=== PATIENT | female | born 1990 | race Caucasian/White ===

== ENCOUNTER 2021-06-24 11:00 | Outpatient (CLI) | payer BC, SELFPAY ==
[2021-06-24] VITALS (10 sets, daily range): BP systolic 109–126; BP diastolic 51–66; PULSE 75–86; TEMP 36.8
[2021-06-24 12:30] LABS: Basophils Percent Auto 0.2 % (0.2-1.2); Eosinophils Absolute Auto 0.1 K/mm3 (0-0.3); Eosinophils Percent Auto 1.1 % (0-4.4); Hematocrit 33.1 % (37.0-47.0); Immature Granulocyte Absolute 0.21 K/mm3 (0.00-0.031); Immature Granulocyte Percent A 1.6 % (0-0.5); Lymphocytes Absolute Auto 1.79 K/mm3 (0.9-3.2); Lymphocytes Percent Auto 13.4 % (18.3-44.2); Mean Corpuscular HGB Conc 33.2 g/dl (32-36); Mean Corpuscular Hemoglobin 30.6 pg (26-34); Mean Corpuscular Volume 91.9 fl (80-100); Mean Platelet Volume 10.1 fl (7.4-10.4); Monocytes Absolute Auto 0.9 K/mm3 (0.1-0.6); Monocytes Percent Auto 6.9 % (2.6-8.5); Neutrophils Absolute Auto 10.2 K/mm3 (1.3-6.7); Neutrophils Percent Auto 76.8 % (45.5-73.1); Platelet Count Result 200 k/mm3 (150-375); Red Cell Distribution Width 13.2 % (11.5-14.5); White Blood Count 13.3 K/mm3 (4.5-10.0)
[2021-06-24 12:46] LABS: Add Urine Microscopic? YES; Appearance Urine Cloudy (Clear); Bacteria Urine Trace /hpf; Bilirubin Urine Negative (Negative); Blood Urine Negative (Negative); Color Urine Yellow (Yellow); Glucose Urine UA Negative (Negative); Ketones Urine Negative (Negative); Leukocyte Esterase Ur 1+ LEU/UL (NEGATIVE); Mucus Urine Rare /lpf; Nitrate Urine Negative (Negative); Protein Urine Negative (Negative); Specific Grav Ur 1.015 (1.001-1.035); Squamous Epithelial Cell Urine Many /hpf (Few); Urobilinogen Urine Negative mg/dL (<2.0)
[2021-06-24 12:53] LABS: Alanine Aminotransferase 17 U/L (4-35); Albumin Level 3.6 g/dL (3.5-5.1); Alkaline Phosphatase 124 U/L (38-126); Anion Gap 9 mmol/L (8-16); Aspartate Amino Transferase 24 U/L (14-36); Bilirubin,Total 0.4 mg/dL (0.2-1.3); Blood Urea Nitrogen 5 mg/dL (7-17); Calcium 8.7 mg/dL (8.4-10.2); Carbon Dioxide 20 mmol/L (22-30); Chloride 104 mmol/L (98-107); Estimated Glomerular Filt Rate > 60; Glucose 101 mg/dL (65-110); Potassium 3.4 mmol/L (3.4-5.0); Sodium 133 mmol/L (137-145); Uric Acid 3.4 mg/dL (2.5-7.5)
[2021-06-24 13:30] LABS: Creatinine Urine 91.8 mg/dL; Total Protein Urine Random 7 mg/dL; Ur Ttl Prot Creatinine Ratio 0.08 mg/mg (0-0.20)
--- NOTE | 2021-06-24 13:51 | PC.NURSE ---
Pt to follow up in office Monday for blood pressure check. BPP ANJELICA ordered per Dr. Karla VANG if not already done. Pt states she had normal BPP and normal ANJELICA in office prior to arrival.
== END 2021-06-24 13:50 | disposition home or self-care (01) ==
LOC: ANHOBOP 11:07 → ANHOBPP 11:10
PROVIDERS: Obstetrics & Gynecology; PCP Family Medicine; Visit Provider Obstetrics & Gynecology
DX: O13.2 Gestational [pregnancy-induced] hypertension without significant proteinuria, second trimester (principal); Z3A.38 38 weeks gestation of pregnancy
CPT/HCPCS: 36415; 59025; 80053; 81001; 82570; 84156; 84550; 85025; 87086; 99199

== ENCOUNTER 2021-07-02 05:20 | Inpatient (IN) | payer BC, SELFPAY ==
[2021-07-02] VITALS (127 sets, daily range): BP systolic 66–139; BP diastolic 38–81; PULSE 26–137; RESP 16–18; TEMP 35.7–37; O2SAT 78–100; BMI 44.9
--- OUTSIDE RECORDS SUMMARY | 2021-07-02 05:25 | XMS_ITS ---
:1990 Author Care Team Providers Name Role Phone Ashlee Fields Primary Care Provider Unavailable Allergies Code Code System Name Reaction Severity Status Onset 38806 RxNorm Montelukast Other Moderate Active ? Medications Name Status Start Date Stop Date ? ? amoxicillin 875 mg tablet Completed ? 2019 TK 1 T PO Q 12 H FOR 7 DAYS amoxicillin 875 mg-potassium clavulanate 125 mg tablet Completed ? 10/14/2019 TK 1 T PO Q 12 H FOR 10 DAYS azithromycin 250 mg tablet Completed ? 10/17 TK 2 TS PO AT ONCE TODAY THEN TK 1 T PO ONCE D FOR 4 DAYS azithromycin tab 250mgazithromycin Completed ? 10/17/2014 budesonide-formoterol HFA 80 mcg-4.5 mcg/actuation aerosol inhal er Active ? Not available INL 2 PFS PO BID bupropion HCl XL 150 mg 24 hr tablet, extended release Active ? Not available TK 1 T PO QD buspirone 10 mg tablet Completed ? 0 TK 1 T PO BID PRN cetirizine 10 mg tablet Active ? Not avai lable TK 1 T PO QD cyclobenzapr tab 10mgcyclobenzaprine Completed ? 02/25/2016 hcl cyclobenzaprine 10 mg tablet Completed ? TK 1 T PO Q 8 H PRF MUSCLE SPASMS escitalopram 10 mg tablet Completed ? 2019 TK 1 T PO QD escitalopram 20 mg tablet Active ? Not av ailable TAKE 1 TABLET BY MOUTH EVERY DAY flovent hfa aer 44mcgflovent hfa Completed ? 02/25/2016 Flovent HFA 44 mcg/actuation aerosol inhaler Completed ? 07/07/2014 Inhale 2 pu
--- OUTSIDE RECORDS SUMMARY | 2021-07-02 05:25 | XMS_ITS ---
:1990 Author Care Team Providers Name Role Phone Ashlee Fields Primary Care Provider Unavailable Allergies Code Code System Name Reaction Severity Status Onset 45959 RxNorm Montelukast Other Moderate Active ? Medications Name Status Start Date Stop Date ? ? albuterol sulfate HFA 90 mcg/actuation aerosol inhaler Active ? Not available INHALE 2 PUFFS BY MOUTH EVERY 4 TO 6 HOURS NEEDED FOR COUGH amoxicillin 875 mg tablet Completed ? 2019 TK 1 T PO Q 12 H FOR 7 DAYS amoxicillin 875 mg-potassium clavulanate 125 mg tablet Completed ? 10/14/2019 TK 1 T PO Q 12 H FOR 10 DAYS azithromycin 250 mg tablet Completed ? 10/17 TK 2 TS PO AT ONCE TODAY THEN TK 1 T PO ONCE D FOR 4 DAYS budesonide-formoterol HFA 80 mcg-4.5 mcg/actuation aerosol inhal er Active ? Not available INHALE 2 PUFFS BY MOUTH TWICE DAILY bupropion HCl XL 150 mg 24 hr tablet, extended release Completed ? 11/12/2020 TK 1 T PO QD buspirone 10 mg tablet Completed ? 0 TK 1 T PO BID PRN cetirizine 10 mg tablet Active ? Not avai lable TK 1 T PO QD cyclobenzaprine 10 mg tablet Completed ? TK 1 T PO Q 8 H PRF MUSCLE SPASMS escitalopram 10 mg tablet Completed ? 2019 TK 1 T PO QD escitalopram 20 mg tablet Active ? Not av ailable TAKE 1 TABLET BY MOUTH EVERY DAY Flovent HFA 44 mcg/actuation aerosol inhaler Completed ? 07/07/2014 Inhale 2 puffs twice a day by inhalation route. hydrocodone 5 mg-ac
--- OUTSIDE RECORDS SUMMARY | 2021-07-02 05:25 | XMS_ITS ---
:1990 Author Care Team Providers Name Role Phone RICHY JULIEN MD Primary Care Provider [phone] Allergies Code Code System Name Reaction Severity Status Onset NKDA ? Medications Name Status Start Date Stop Date ? ? albuterol sulfate HFA 90 mcg/actuation aerosol inhaler Active ? Not available INHALE 2 PUFFS BY MOUTH EVERY 4 TO 6 HOURS NEEDED FOR COUGH amoxicillin 875 mg tablet Completed ? 2019 amoxicillin 875 mg-potassium Completed ? 02/2020 clavulanate 125 mg tablet bupropion HCl XL 150 mg 24 hr tablet, extended release Completed ? 12/03/2020 TK 1 T PO QD buspirone 10 mg tablet Completed ? 0 Cleocin T 1 % topical gel Completed ? 2020 APPLY A THIN LAYER TO THE AFFECTED AREA (S) BY TOPICAL ROUTE 2-3 times per week for prevention EasiVent Mask Large Completed ? 12/06/2012 escitalopram 10 mg tablet Completed ? 2019 escitalopram 20 mg tablet Active ? Not av ailable Implanon 68 mg subdermal Completed ? 018 implant Mirena 20 mcg/24 hours (7 yrs) 52 mg intrauterine device Complet ed ? 12/02/2020 Take by intrauterine route. Susan (28) 3 mg-0.02 mg tablet Completed 09/25/2017 0 10/09/2017 take 1 tablet by oral route every day Active ? Not available Symbicort Completed ? 04/03/2020 Symbicort 80 mcg-4.5 mcg/actuation HFA aerosol inhaler Completed 09/25/2017 12/02/2020 inhale 2 puff by inhalation route 2 times every day i n the morning and evening
--- OUTSIDE RECORDS SUMMARY | 2021-07-02 05:26 | XMS_ITS | Encounter Summary ---
:1990 Author Care Team Providers Name Role Phone Ashlee Fields MD Primary Care Provider [phone] Reason for Visit None recorded. Assessment and Plan 1. Maternal obesity complicating , childbirth and the puerperium, antepartum ? non-stress test Discussion Note: None recorded.Patient educational handouts: No information available. Plan of Care Reminders Provider Appointments Ob Routine 07/08/2021 Denise Acosta, 10:30AM CNM ? Return to on or around [place] [facility] 10/04/2021 [facility] Di[facility] Lab None ? ? recorded. Referral None ? ? recorded. Procedures None ? ? recorded. Surgeries None ? ? recorded. Imaging Non-stress 06/24/2021 Sydnie murray Test Medications Name Start Date ? ? albuterol sulfate HFA 90 mcg/actuation aerosol inhaler ? INHALE 2 PUFFS BY MOUTH EVERY 4 TO 6 HOURS NEEDED FOR COUGH escitalopram 20 mg tablet ? TAKE 1 TABLET BY MOUTH EVERY DAY ? Medications Administered None recorded. Vitals None recorded. Results Lab Results None recorded. Allergies Code Code System Name Reaction Severity Onset
--- OUTSIDE RECORDS SUMMARY | 2021-07-02 05:26 | XMS_ITS | Encounter Summary ---
:1990 Author Care Team Providers Name Role Phone Ashlee Fields MD Primary Care Provider [phone] Reason for Visit None recorded. Assessment and Plan 1. Maternal obesity complicating , childbirth and the puerperium, antepartum ? US, obstetric, biophysical profile + non-stress test ? US, obstetric, follow-up Discussion Note: None recorded.Patient educational handouts: No information available. Plan of Care Reminders Provider Appointments Ob Routine 07/08/2021 Denise Acosta, 10:30AM CNM ? Return to on or around [facility] Office 10/04/2021 [facility] Dias - Lab None ? ? recorded. Referral None ? ? recorded. Procedures None ? ? recorded. Surgeries None ? ? recorded. Imaging US, 07/01/2021 [facility], Biophysical Profile + Non-stress Test ? US, 07/01/2021 [facility], Follow-up Medications Name Start Date ? ? albuterol sulfate HFA 90 mcg/actuation aerosol inhaler ? INHALE 2 PUFFS BY MOUTH EVERY 4 TO 6 HOURS NEEDED FOR COUGH escitalopram 20 mg tablet ? TAKE 1 TABLET BY MOUTH EVERY DAY
--- OUTSIDE RECORDS SUMMARY | 2021-07-02 05:26 | XMS_ITS | Encounter Summary ---
:1990 Author Care Team Providers Name Role Phone Ashlee Fields MD Primary Care Provider [phone] Reason for Visit None recorded. Assessment and Plan 1. Maternal obesity complicating , childbirth and the puerperium, antepartum ? US, obstetric, biophysical profile + non-stress test Discussion Note: None recorded.Patient educational handouts: No information available. Plan of Care Reminders Provider Appointments Ob Routine 07/08/2021 Denise Acosta, 10:30AM CNM ? Return to on or around [facility] Office 10/04/2021 [facility] Dias - Lab None ? ? recorded. Referral None ? ? recorded. Procedures None ? ? recorded. Surgeries None ? ? recorded. Imaging US, 06/24/2021 [facility] [facility], Biophysical Profile + Non-stress Test Medications Name Start Date ? ? albuterol sulfate HFA 90 mcg/actuation aerosol inhaler ? INHALE 2 PUFFS BY MOUTH EVERY 4 TO 6 HOURS NEEDED FOR COUGH escitalopram 20 mg tablet ? TAKE 1 TABLET BY MOUTH EVERY DAY ? Medications Administered None recorded. Vitals None recorded. Results Lab Results None recorded. Allergies
--- OUTSIDE RECORDS SUMMARY | 2021-07-02 05:26 | XMS_ITS | Encounter Summary ---
:1990 Author Care Team Providers Name Role Phone Ashlee Fields MD Primary Care Provider [phone] Reason for Visit OB visit 38wks Assessment and Plan 1. Routine care Discussion Note: None recorded.Patient educational handouts: No information available. Plan of Care Reminders Provider Appointments Ob Routine 07/08/2021 Denise Acosta, 10:30AM CNM ? Return to on or around [facility] Office 10/04/2021 [facility] Lab None ? ? recorded. Referral None ? ? recorded. Procedures None ? ? recorded. Surgeries None ? ? recorded. Imaging None ? ? recorded. Medications Name Start Date ? ? albuterol sulfate HFA 90 mcg/actuation aerosol inhaler ? INHALE 2 PUFFS BY MOUTH EVERY 4 TO 6 HOURS NEEDED FOR COUGH escitalopram 20 mg tablet ? TAKE 1 TABLET BY MOUTH EVERY DAY ? Medications Administered None recorded. Vitals Height Weight BMI Blood Pressure 5 ft 7 in 288 lbs 45.1 kg/m2 (1) 161/86 mm[H g] (2) 146/90 mm[Hg ] Results Lab Results None recorded. Allergies Code Code System Name Reaction Severity Ons
--- OUTSIDE RECORDS SUMMARY | 2021-07-02 05:26 | XMS_ITS | Encounter Summary ---
:1990 Author Care Team Providers Name Role Phone Ashlee Fields MD Primary Care Provider [phone] Reason for Visit OB visit 37wks Assessment and Plan 1. Routine care Discussion Note: None recorded.Patient educational handouts: No information available. Plan of Care Reminders Provider Appointments Ob Routine 07/08/2021 Denise Acosta, 10:30AM CNM ? Return to on or around [place] [facility] 10/04/2021 [facility] Lab None ? [...] ft 7 in 288 lbs 45.1 kg/m2 115/73 mm[Hg] Results Lab Results None recorded. Allergies Code Code System Name Reaction Severity Onset
--- OUTSIDE RECORDS SUMMARY | 2021-07-02 05:26 | XMS_ITS | Encounter Summary ---
:1990 Author Care Team Providers Name Role Phone Ashlee Fields MD Primary Care Provider [phone] Reason for Visit None recorded. Assessment and Plan 1. Maternal obesity complicating , childbirth and the puerperium, antepartum ? US, obstetric, biophysical profile + non-stress test Discussion Note: None recorded.Patient educational handouts: No information available. Plan of Care Reminders Provider Appointments Ob Routine 07/08/2021 Denise Acosta, 10:30AM CNM ? Return to on or around [facility] Office 10/04/2021 NAS Dias - Lab None ? ? recorded. Referral None ? ? recorded. Procedures None ? ? recorded. Surgeries None ? ? recorded. Imaging US, 06/17/2021 [facility], Biophysical Profile + Non-stress Test Medications [...]
--- OUTSIDE RECORDS SUMMARY | 2021-07-02 05:26 | XMS_ITS | Encounter Summary ---
:1990 Author Care Team Providers Name Role Phone Ashlee Fields MD Primary Care Provider [phone] Reason for Visit OB visit 36wks Assessment and Plan 1. Routine care Discussion [...] BMI Blood Pressure 5 ft 7 in 285 lbs 44.6 kg/m2 119/74 mm[Hg] Results Lab Results None recorded. Allergies Code Code System Name Reaction Severity Onset
--- OUTSIDE RECORDS SUMMARY | 2021-07-02 05:26 | XMS_ITS | Encounter Summary ---
:1990 Author Care Team Providers Name Role Phone Ashlee Fields MD Primary Care Provider [phone] Reason for Visit None recorded. Assessment and Plan 1. Maternal obesity complicating , childbirth and the puerperium, antepartum ? non-stress test Discussion Note: None recorded.Patient educational handouts: No information available. Plan of Care Reminders Provider Appointments Ob Routine 07/08/2021 Denise Acosta, 10:30AM CNM ? Return to on or around [place] [facility] 10/04/2021 [facility] Di[facility] Lab None ? ? recorded. Referral None ? ? recorded. Procedures None ? ? recorded. Surgeries None ? ? recorded. Imaging Non-stress 06/10/2021 Sydnie murray Test Medications Name Start Date [...]
--- OUTSIDE RECORDS SUMMARY | 2021-07-02 05:26 | XMS_ITS | Encounter Summary ---
:1990 Author Care Team Providers Name Role Phone Ashlee Fields MD Primary Care Provider [phone] Reason for Visit None recorded. Assessment and Plan 1. Maternal obesity complicating , childbirth and the puerperium, antepartum ? non-stress test Discussion Note: None recorded.Patient educational handouts: No information available. Plan of Care Reminders Provider Appointments Ob Routine 07/08/2021 Denise Acosta, 10:30AM CNM ? Return to on or around [place] [facility] 10/04/2021 NAS Dias [facility] Lab None ? ? recorded. Referral None ? ? recorded. Procedures None ? ? recorded. Surgeries None ? ? recorded. Imaging Non-stress 06/17/2021 Sydnie murray Test Medications Name Start Date [...]
--- OUTSIDE RECORDS SUMMARY | 2021-07-02 05:26 | XMS_ITS | Encounter Summary ---
:1990 Author Care Team Providers Name Role Phone Ashlee Fields MD Primary Care Provider [phone] Reason for Visit blood pressure Assessment and Plan 1. Routine care Discussion Note: None recorded.Patient educational handouts: No information available. Plan of Care Reminders Provider Appointments Ob Routine 07/08/2021 Denise Acosta, 10:30AM CNM ? Return to on or around [facility] Office 10/04/2021 [facility] Dias Lab None ? [...] BMI Blood Pressure 5 ft 7 in 287 lbs 45 kg/m2 133/79 mm[Hg] Results Lab Results None recorded. Allergies Code Code System Name Reaction Severity Onset NKDA ? ?
--- OUTSIDE RECORDS SUMMARY | 2021-07-02 05:26 | XMS_ITS | Encounter Summary ---
:1990 Author Care Team Providers Name Role Phone Ashlee Fields MD Primary Care Provider [phone] Reason for Visit None recorded. Assessment and Plan 1. Maternal obesity complicating , childbirth and the puerperium, antepartum ? US, obstetric, follow-up ? US, obstetric, biophysical profile + non-stress test Discussion Note: None recorded.Patient educational handouts: No information available. Plan of Care Reminders Provider Appointments Ob Routine 07/08/2021 Denise Acosta, 10:30AM CNM ? Return to on or around [facility] Office 10/04/2021 NAS Dias - Lab None ? ? recorded. Referral None ? ? recorded. Procedures None ? ? recorded. Surgeries None ? ? recorded. Imaging US, 06/10/2021 [facility], Follow-up ? US, 06/10/2021 [facility], Biophysical Profile + Non-stress Test Medications Name Start Date ? ? albuterol sulfate HFA 90 mcg/actuation aerosol inhaler ? INHALE 2 PUFFS BY MOUTH EVERY 4 TO 6 HOURS NEEDED FOR COUGH escitalopram 20 mg tablet ? TAKE 1 TABLET BY MOUTH EVERY DAY
--- OUTSIDE RECORDS SUMMARY | 2021-07-02 05:26 | XMS_ITS | Encounter Summary ---
:1990 Author Care Team Providers Name Role Phone Ashlee Fields MD Primary Care Provider [phone] Reason for Visit None recorded. Assessment and Plan 1. Maternal obesity complicating , childbirth and the puerperium, antepartum ? non-stress test Discussion Note: None recorded.Patient educational handouts: No information available. Plan of Care Reminders Provider Appointments Ob Routine 07/08/2021 Denise Acosta, 10:30AM CNM ? Return to on or around [place] [facility] 10/04/2021 NAS Dias [facility] Lab None ? ? recorded. Referral None ? ? recorded. Procedures None ? ? recorded. Surgeries None ? ? recorded. Imaging Non-stress 07/01/2021 Sydnie murray Test Medications Name Start Date [...]
--- OUTSIDE RECORDS SUMMARY | 2021-07-02 05:26 | XMS_ITS | Encounter Summary ---
:1990 Author Care Team Providers Name Role Phone Ashlee Fields MD Primary Care Provider [phone] Reason for Visit OB visit 39wks Assessment and Plan 1. Routine care Discussion [...] BMI Blood Pressure 5 ft 7 in 292 lbs 45.7 kg/m2 135/75 mm[Hg] Results Lab Results None recorded. Allergies Code Code System Name Reaction Severity Onset
--- OUTSIDE RECORDS SUMMARY | 2021-07-02 05:27 | XMS_ITS | Encounter Summary ---
:1990 Author Care Team Providers Name Role Phone Ashlee Fields MD Primary Care Provider [phone] Reason for Visit OB visit Assessment and Plan Assessment Note Patient is ___weeks . Discu ssed plan. 1. Routine care Discussion Note: None recorded.Patient educational handouts: No information available. Plan of Care Reminders Provider Appointments Ob Routine 07/08/2021 Denise Acosta, 10:30AM CNM ? Return to on or around [facility] 10/04/2021 [facility] Di[facility] Lab None ? [...] BMI Blood Pressure 5 ft 7 in 282 lbs 44.2 kg/m2 122/78 mm[Hg] Results Lab Results None recorded. Allergies Code Code System Name
--- OUTSIDE RECORDS SUMMARY | 2021-07-02 05:27 | XMS_ITS | Encounter Summary ---
:1990 Author Care Team Providers Name Role Phone Ashlee Fields MD Primary Care Provider [phone] Reason for Visit OB visit 34wks Assessment and Plan 1. Routine care Discussion [...] BMI Blood Pressure 5 ft 7 in 286 lbs 44.8 kg/m2 110/73 mm[Hg] Results Lab Results None recorded. Allergies Code Code System Name Reaction Severity Onset
--- OUTSIDE RECORDS SUMMARY | 2021-07-02 05:27 | XMS_ITS | Encounter Summary ---
:1990 Author Care Team Providers Name Role Phone Ashlee Fields MD Primary Care Provider [phone] Reason for Visit None recorded. Assessment and [...] Surgeries None ? ? recorded. Imaging US, 05/27/2021 [place] [facility], Biophysical Profile + Non-stress Test Medications [...]
--- OUTSIDE RECORDS SUMMARY | 2021-07-02 05:27 | XMS_ITS | Encounter Summary ---
:1990 Author Care Team Providers Name Role Phone Ashlee Fields MD Primary Care Provider [phone] Reason for Visit OB visit 32wks Assessment and Plan 1. Routine care Discussion [...] BMI Blood Pressure 5 ft 7 in 278 lbs 43.5 kg/m2 113/73 mm[Hg] Results Lab Results None recorded. Allergies Code Code System Name Reaction Severity Onset
--- OUTSIDE RECORDS SUMMARY | 2021-07-02 05:27 | XMS_ITS | Encounter Summary ---
:1990 Author Care Team Providers Name Role Phone Ashlee Fields MD Primary Care Provider [phone] Reason for Visit None recorded. Assessment and Plan 1. Maternal obesity complicating , childbirth and the puerperium, antepartum ? non-stress test Discussion Note: None recorded.Patient educational handouts: No information available. Plan of Care Reminders Provider Appointments Ob Routine 07/08/2021 Denise Acosta, 10:30AM CNM ? Return to on or around [place] [facility] 10/04/2021 [facility] Lab None ? ? recorded. Referral None ? ? recorded. Procedures None ? ? recorded. Surgeries None ? ? recorded. Imaging Non-stress 06/03/2021 Sydnie murray Test Medications Name Start Date [...]
--- OUTSIDE RECORDS SUMMARY | 2021-07-02 05:27 | XMS_ITS | Encounter Summary ---
:1990 Author Care Team Providers Name Role Phone Ashlee Fields MD Primary Care Provider [phone] Reason for Visit OB visit 28w4d Assessment and Plan 1. Routine care Discussion [...] BMI Blood Pressure 5 ft 7 in 270 lbs 42.3 kg/m2 115/74 mm[Hg] Results Lab Results None recorded. Allergies Code Code System Name Reaction Severity Onset
--- OUTSIDE RECORDS SUMMARY | 2021-07-02 05:27 | XMS_ITS | Encounter Summary ---
:1990 Author Care Team Providers Name Role Phone Ashlee Fields MD Primary Care Provider [phone] Reason for Visit None recorded. Assessment and [...] Surgeries None ? ? recorded. Imaging US, 06/03/2021 [facility], Biophysical Profile + Non-stress Test Medications [...]
--- OUTSIDE RECORDS SUMMARY | 2021-07-02 05:27 | XMS_ITS | Encounter Summary ---
:1990 Author Care Team Providers Name Role Phone Ashlee Fields MD Primary Care Provider [phone] Reason for Visit OB visit 32w6d Assessment and Plan 1. Routine care Discussion [...] BMI Blood Pressure 5 ft 7 in 280 lbs 43.9 kg/m2 109/74 mm[Hg] Results Lab Results None recorded. Allergies Code Code System Name Reaction Severity Onset
--- OUTSIDE RECORDS SUMMARY | 2021-07-02 05:27 | XMS_ITS | Encounter Summary ---
:1990 Author Care Team Providers Name Role Phone Ashlee Fields MD Primary Care Provider [phone] Reason for Visit OB visit 30w5d Assessment and Plan 1. Routine care Discussion [...] ft 7 in 278 lbs 43.5 kg/m2 121/78 mm[Hg] Results Lab Results None recorded. Allergies Code Code System Name Reaction Severity Onset
--- OUTSIDE RECORDS SUMMARY | 2021-07-02 05:27 | XMS_ITS | Encounter Summary ---
:1990 Author Care Team Providers Name Role Phone Ashlee Fields MD Primary Care Provider [phone] Reason for Visit None recorded. Assessment and Plan 1. Maternal obesity complicating , childbirth and the puerperium, antepartum ? non-stress test Discussion Note: None recorded.Patient educational handouts: No information available. Plan of Care Reminders Provider Appointments Ob Routine 07/08/2021 Denise Acosta, 10:30AM CNM ? Return to on or around [place] [facility] 10/04/2021 NAS Dias [facility] Lab None ? ? recorded. Referral None ? ? recorded. Procedures None ? ? recorded. Surgeries None ? ? recorded. Imaging Non-stress 05/27/2021 Sydnie murray Test Medications Name Start Date [...]
[2021-07-02] MEDS: LACTATED RINGERS 1,000 ML 125 ML IV CONT ×2 (06:26→08:27)
[2021-07-02] MEDS: OXYTOCIN 30 UNITS/NS 500 ML 30 UNITS/500 ML BAG IV CONT (06:26)
[2021-07-02 07:12] LABS: Basophils Percent Auto 0.2 % (0.2-1.2); Eosinophils Absolute Auto 0.2 K/mm3 (0-0.3); Eosinophils Percent Auto 1.3 % (0-4.4); Hematocrit 34.4 % (37.0-47.0); Hemoglobin 11.3 g/dL (12.0-15.0); Immature Granulocyte Absolute 0.15 K/mm3 (0.00-0.031); Immature Granulocyte Percent A 1.2 % (0-0.5); Lymphocytes Absolute Auto 1.25 K/mm3 (0.9-3.2); Lymphocytes Percent Auto 9.7 % (18.3-44.2); Mean Corpuscular HGB Conc 32.8 g/dl (32-36); Mean Corpuscular Hemoglobin 30.1 pg (26-34); Mean Corpuscular Volume 91.5 fl (80-100); Mean Platelet Volume 10.3 fl (7.4-10.4); Monocytes Absolute Auto 0.8 K/mm3 (0.1-0.6); Monocytes Percent Auto 6.3 % (2.6-8.5); Neutrophils Absolute Auto 10.4 K/mm3 (1.3-6.7); Neutrophils Percent Auto 81.3 % (45.5-73.1); Platelet Count Result 229 k/mm3 (150-375); Red Blood Count 3.76 M/mm3 (4.2-5.4); Red Cell Distribution Width 13.5 % (11.5-14.5); White Blood Count 12.8 K/mm3 (4.5-10.0)
[2021-07-02 07:28] LABS: Amphetamine Screen Urine Negative (Negative); Barbiturate Screen Urine Negative (Negative); Benzodiazepines Screen Urine Negative (Negative); Cannabinoid Screen Urine Positive (Negative); Cocaine Screen Urine Negative (Negative); Methadone Screen Urine Negative (Negative); Opiate Screen Urine Negative (Negative); Phencyclidine Screen Urine Negative (Negative)
--- NOTE | 2021-07-02 07:45 | WPDOBADMIT ---
Obstetrics - Admit Note Admission Note: record reviewed. No pertinent additions to the history and/or any subsequent changes in the physical findings that are not consistent with the expected course of the were found. MIL, cleftlip/palate, SVE /-1 AROM large amount of clear odorless fluid, anticipate vaginal delivery Additions to the history and/or subsequent changes in the physical findings follow. None.
[2021-07-02 09:08] LABS: Rapid Plasma Reagin Non-Reactive (NonReactive)
--- NOTE | 2021-07-02 13:27 | PM.IMHP ---
H&P: HPI History of Present Illness Date/Time: 07/02/21 13:27 Chief Complaint: pt here for IOL and heart tones are decelerating, RN interventions have helped in between contractions, CNM and Dr. San at for evaluation. cleft lip and palate Review of Systems Review of Systems: All systems reviewed & are unremarkable except as noted in HPI and below PMFSH Family History Family History (Updated 06/14/21 @ 12:32 by Hallie Arzola RN) Father Malignant neoplasm of prostate Social History Social History Smoking status: Never smoker Second hand tobacco smoke exposure: Yes Substance use: never Spiritual care concerns: No Meds Home Medications and Allergies Home Medications Medication Instructions Recorded Confirmed Type PNV cmb#95-ferrous fumarate-FA 1 tablet PO DAILY 06/14/21 06/14/21 History [] albuterol 90 mcg INHALATION DIRECTED PRN 06/14/21 06/14/21 History cholecalciferol (vitamin D3) 50 mcg PO DAILY 06/14/21 06/14/21 History [Vitamin D3] escitalopram oxalate 20 mg PO DAILY 06/14/21 06/14/21 History Allergies Allergy/AdvReac Type Severity Reaction Status Date / Time No Known Allergies Allergy Verified 06/14/21 12:29 Vital Signs Vital Signs - 24 hr 07/02/21 05:51 07/02/21 06:01 07/02/21 06:16 Temperature Pulse Rate 98 102 H 92 Blood Pressure 120/63 104/61 118/60 Pulse Oximetry 07/02/21 06:30 07/02/21 06:31 07/02/21 06:46 Temperature 36.2 C L Pulse Rate 95 95 Blood Pressure 122/62 108/56 L Pulse Oximetry 07/02/21 07:01 07/02/21 07:16 07/02/21 07:31 Temperature Pulse Rate 87 91 85 Blood Pressure 129/64 119/64 132/75 Pulse Oximetry 07/02/21 07:46 07/02/21 08:01 07/02/21 08:16 Temperature Pulse Rate 83 84 88 Blood Pressure 118/66 127/67 122/70 Pulse Oximetry 07/02/21 08:22 07/02/21 08:27 07/02/21 08:29 Temperature Pulse Rate 95 Blood Pressure 128/71 Pulse Oximetry 97 96 07/02/21 08:31 07/02/21 08:32 07/02/21 08:34 Temperature Pulse Rate 91 86 Blood Pressure 125/58 L 120/58 L Pulse Oximetry 97 07/02/21 08:37 07/02/21 08:40 07/02/21 08:42 Temperature Pulse Rate 87 92 Blood Pressure 117/55 L 122/63 Pulse Oximetry 98 97 07/02/21 08:43 07/02/21 08:46 07/02/21 08:47 Temperature Pulse Rate 91 86 Blood Pressure 116/56 L 119/55 L Pulse Oximetry 98 07/02/21 08:49 07/02/21 08:52 07/02/21 08:55 Temperature Pulse Rate 84 80 87 Blood Pressure 120/55 L 124/56 L 112/64 Pulse Oximetry 98 07/02/21 08:57 07/02/21 08:58 07/02/21 09:01 Temperature Pulse Rate 85 91 Blood Pressure 118/59 L 120/81 Pulse Oximetry 98 07/02/21 09:02 07/02/21 09:04 07/02/21 09:07 Temperature Pulse Rate 81 Blood Pressure 124/59 L Pulse Oximetry 98 100 07/02/21 09:09 07/02/21 09:12 07/02/21 09:16 Temperature 36.3 C L Pulse Rate 82 Blood Pressure 109/47 L Pulse Oximetry 100 07/02/21 09:17 07/02/21 09:22 07/02/21 09:27 Temperature Pulse Rate Blood Pressure Pulse Oximetry 100 99 99 07/02/21 09:31 07/02/21 09:32 07/02/21 09:37 Temperature Pulse Rate 79 Blood Pressure 100/39 L Pulse Oximetry 100 98 07/02/21 09:42 07/02/21 09:46 07/02/21 09:47 Temperature Pulse Rate 84 Blood Pressure 104/45 L Pulse Oximetry 100 100 07/02/21 09:52 07/02/21 09:57 07/02/21 10:01 Temperature Pulse Rate 79 Blood Pressure 102/51 L Pulse Oximetry 97 97 07/02/21 10:02 07/02/21 10:07 07/02/21 10:12 Temperature Pulse Rate Blood Pressure Pulse Oximetry 97 97 100 07/02/21 10:16 07/02/21 10:17 07/02/21 10:22 Temperature Pulse Rate 77 Blood Pressure 83/67 L Pulse Oximetry 99 97 07/02/21 10:27 07/02/21 10:31 07/02/21 10:32 Temperature Pulse Rate 77 Blood Pressure 109/56 L Pulse Oximetry 97 100 07/02/21 10:37 07/02/21 10:42 07/02/21 10:46 Temperature Pul
--- NOTE | 2021-07-02 13:59 | P.OP_ITS ---
Procedure Note - Detailed Date of Procedure 07/02/21 Pre-op Diagnosis Induction, intollerance of labor Post-op Diagnosis same Procedure Performed Low-transverse section Surgeon Narcisa San MD Anesthesia epidural Indications distress Findings Normal gestational maternal anatomy, average size , normal Apgars. Cleft lip and palette. Description of Procedure The patient was taken the operating room. She was prepped and draped in dorsal supine position with a leftward tilt. This was done after spinal anesthetic was applied. A low-transverse skin incision was made and carried down till of the fascia with the knife. The fascial incision was made with the knife. The fascial incision was extended laterally with Tobar scissors. The fascia was tented upward superiorly and inferiorly the rectus muscles were dissected off bluntly. The rectus muscles were the midline. The preperitoneal fat and peritoneum were dissected open bluntly at the superior aspect of the separa agustin rectus muscles. The peritoneal incision was extended superior and inferior with good position of bladder. The uterine incision was made with a scalpel down to the level of the amniotic cavity. The amniotic cavity was entered bluntly. The was delivered. The cord was clamped and cut and the infant was handed off to waiting pediatric staff. Cord bloods were obtained. The placenta was removed manually. The uterus was exteriorized. The uterus was cleared of all clots, debris and membranes. The uterus was closed in 0 Vicryl running lock fashion. An imbricating over a was placed along the incision line as well. The uterus was returned to the abdomen. The gutters were cleared of all clots and debris. The fascia was closed with 0 Vicryl running fashion. The subcutaneous tissue was irrigated pinpoint bleeders were cauterized. The skin was closed with subcuticular absorbable darren. The skin incision line was covered with glue. The patient tolerated the procedure well. She has taken recovery room in stable condition. Sponge lap and needle counts were correct x2. Estimated Blood Loss 495 Pathology yes Complications No immediate complications Condition stable Disposition PACU
[2021-07-02] MEDS: MORPHINE SULFATE PCA (*CRX) 30 MG/30 ML SYR IV CONT ×2 (14:39→22:34)
[2021-07-02] MEDS: OXYTOCIN 30 UNITS/NS 500 ML 30 UNITS/500 ML BAG 125 UNITS IV CONT (16:11)
--- NOTE | 2021-07-02 16:20 | PC.NURSE ---
Patient transferred to post room #280 via stretcher. Support person present. Oriented to unit, room, information board, rooming in, admission packet and security measures. Patient verbalizes understanding.
[2021-07-02] MEDS: KETOROLAC 30 MG/ML VIAL (*BKC) IV PUSH (17:56)
[2021-07-02] MEDS: DEXTROSE 5%/0.45% SOD CHL 1,000 ML 125 ML IV CONT (20:30)
[2021-07-03] VITALS (7 sets, daily range): BP systolic 106–128; BP diastolic 57–68; PULSE 76–78; RESP 14–16; TEMP 36–36.8; O2SAT 95–99
[2021-07-03] MEDS: KETOROLAC 30 MG/ML VIAL (*BKC) IV PUSH ×2 (00:07→06:46)
[2021-07-03] MEDS: KCL 20 MEQ/D5/0.45% SOD CHL 1,000 ML 125 ML IV CONT (03:41)
[2021-07-03 04:48] LABS: Basophils Percent Auto 0.2 % (0.2-1.2); Eosinophils Absolute Auto 0.1 K/mm3 (0-0.3); Eosinophils Percent Auto 0.7 % (0-4.4); Hematocrit 31.7 % (37.0-47.0); Hemoglobin 10.3 g/dL (12.0-15.0); Immature Granulocyte Absolute 0.08 K/mm3 (0.00-0.031); Immature Granulocyte Percent A 0.6 % (0-0.5); Lymphocytes Absolute Auto 1.35 K/mm3 (0.9-3.2); Lymphocytes Percent Auto 10.3 % (18.3-44.2); Mean Corpuscular HGB Conc 32.5 g/dl (32-36); Mean Corpuscular Hemoglobin 29.4 pg (26-34); Mean Corpuscular Volume 90.6 fl (80-100); Mean Platelet Volume 10.5 fl (7.4-10.4); Monocytes Absolute Auto 0.9 K/mm3 (0.1-0.6); Monocytes Percent Auto 7.1 % (2.6-8.5); Neutrophils Absolute Auto 10.7 K/mm3 (1.3-6.7); Neutrophils Percent Auto 81.1 % (45.5-73.1); Platelet Count Result 186 k/mm3 (150-375); Red Cell Distribution Width 13.3 % (11.5-14.5); White Blood Count 13.2 K/mm3 (4.5-10.0)
[2021-07-03] MEDS: HYDROcodone/acetaminophen (*CRX) 10-325 MG TABLET 1 TAB PO ×5 (06:51→23:02)
--- NOTE | 2021-07-03 07:49 | P.PNOB_ITS ---
OB - PN: Subj Subjective Date/time seen: 07/03/21 07:49 Patient comments: no complaints, pain well controlled, tolerating diet and flatus present [place] baby status: doing well OB - PN: Obj Data Labs CBC & Chem 7: 07/03/21 03:45 Labs: Laboratory Results - last 24 hr 07/02/21 07/02/21 07/03/21 05:48 05:48 03:45 WBC 13.2 H RBC 3.50 L Hgb 10.3 L Hct 31.7 L MCV 90.6 MCH 29.4 MCHC 32.5 RDW 13.3 Plt Count 186 MPV 10.5 H Immature Gran % (Auto) 0.6 H Neut % (Auto) 81.1 H Lymph % (Auto) 10.3 L [place] % (Auto) 7.1 Eos % (Auto) 0.7 Baso % (Auto) 0.2 Lymph # (Auto) 1.35 [place] # (Auto) 0.9 H Eos # (Auto) 0.1 Baso # (Auto) 0.0 Abs Immat Gran (auto) 0.08 H Absolute Neuts (auto) 10.7 H Absolute Nucleated RBC 0.0 Nucleated RBC % 0.0 RPR Non-reactive Blood Type O Positive Antibody Screen Negative OB - PN A/P Plan day: 1 Plan: routine care Time Spent With Patient Time: Total time spent is greater than 50% in coordination of care (as documented) at patient's floor/unit and/or counseling patient: Time with patient: less than 15 minutes Review of Systems Review of Systems: All systems reviewed & are unremarkable except as noted in HPI and below Exam Narrative: Fundus firm. Vaginal flow controlled. Incision dry and intact. Negative homans. No redness, warmth, or pain of lower ext. Const: General: comfortable Chest: Breast/axilla inspection: normal inspection of the breasts Resp: Effort & Inspection: normal respiratory effort Auscultation: clear to auscultation bilaterally Cardio: Rate: regular rate GI: GI Palp: Yes Soft to palpation Psych: Appearance: grossly normal Affect: normal affect Attitude: cooperative Thought content: Yes Normal thought content present Judgement: Good judgement present (Psych)
[2021-07-03] MEDS: CHOLECALCIFEROL 1,000 UNITS TABLET 2000 UNITS PO (10:13)
[2021-07-03] MEDS: MULTIVIT/MIN/PREN/FOL AC/IRON TABLET 1 TAB PO (10:13)
[2021-07-03] MEDS: ESCITALOPRAM OXALATE 10 MG TABLET 20 MG PO (10:13)
--- NOTE | 2021-07-03 10:13 | PCCCNOTE ---
Care Coordination. Patient referred to Care Coordination for positive UDS for THC. Baby was still pending results. Spoke with RNKaylene. Met with pt. and FOB at bedside who was sleeping. Pt. reports this is second child and other child is 8 years old. She had shower from friends and family and has all necessary baby care items. She denied any center needs resource needs and did not feel she would qualify for WIC. Spoke with Kt Peterson from [facility] Hotline who took pt.'s situation as information only (Intake ID#[id number]).
[2021-07-03] MEDS: DOCUSATE SODIUM 100 MG CAPSULE PO ×2 (10:14→17:30)
--- NOTE | 2021-07-03 11:11 | WPDANLDNPN2 ---
Anes-Prog Note L&D-Neuraxial Date/Time: 07/03/21 11:11 Neuraxial medications: intrathecal PF morphine Opiod-related complaints: pruritis mild, no treatment Patient feedback: Patient satisfied with post-operative pain management.
--- NOTE | 2021-07-03 11:12 | WPDANLDPN2 ---
Anes-Prog Note L&D Date/Time: 07/03/21 11:12 Comfortable throughout: section Neuraxial method: spinal Epidural/Spinal procedure site: clean & non-tender Neuro status: Neuro function grossly intact. Cardiovascular status: normal Respiratory status: normal Airway patency: baseline Mental status: baseline Post-Op hydration status: normal Vital Signs: Last Vital Signs Temp 97.2 F L 07/03/21 04:00 Pulse 76 07/03/21 04:00 Resp 16 07/03/21 04:00 BP 107/67 07/03/21 04:00 Pulse Ox 95 07/03/21 04:00 Pain score (VAS): 2 I/O: Intake & Output 07/02/21 07/03/21 07/03/21 23:59 07:59 15:59 Intake Total 1930 730 Output Total 775 1700 Balance 1155 -970 Post-procedural complaints: pruritis mild, no treatment Patient feedback: Patient satisfied with anesthetic care.
[2021-07-03] MEDS: IBUPROFEN 600 MG TABLET PO ×2 (13:57→20:21)
[2021-07-03] MEDS: HYDROcodone/acetaminophen (*CRX) 5-325 MG TABLET 1 TAB PO (13:58)
[2021-07-03] MEDS: SIMETHICONE 80 MG TAB.CHEW PO (17:29)
--- NOTE | 2021-07-04 01:01 | PC.NURSE ---
Daylight Savings Time For Daylight Savings Time Ending in the Fall - Clocks are moved back. For [facility], the time of change occurs at 0200 hrs. Time is taken from the fruit preserver. This entry on the patient's chart recognizes the change in time reflected during documentation. Example: 2 entries for vital signs may be charted for 0200 hrs.
[2021-07-04] MEDS: IBUPROFEN 600 MG TABLET PO ×2 (01:18→08:21)
[2021-07-04] MEDS: HYDROcodone/acetaminophen (*CRX) 10-325 MG TABLET 1 TAB PO ×4 (01:19→12:01)
[2021-07-04 08:15] VITALS: BP 141/82; PULSE 84; RESP 16; TEMP 36.3; O2SAT 98
[2021-07-04] MEDS: DOCUSATE SODIUM 100 MG CAPSULE PO (08:21)
[2021-07-04] MEDS: CHOLECALCIFEROL 1,000 UNITS TABLET 2000 UNITS PO (08:21)
[2021-07-04] MEDS: MULTIVIT/MIN/PREN/FOL AC/IRON TABLET 1 TAB PO (08:21)
[2021-07-04] MEDS: ESCITALOPRAM OXALATE 10 MG TABLET 20 MG PO (08:21)
--- NOTE | 2021-07-04 09:23 | PM.OBPNVD ---
OB - PN: Subj Subjective Date/time seen: 07/04/21 09:23 Patient comments: no complaints, pain well controlled, tolerating diet and flatus present baby status: doing well OB - PN: Obj Data Labs CBC & Chem 7: 07/03/21 03:45 OB - PN A/P Plan day: 2 Plan: routine care and discharge home (Follow up in 1 week) Time Spent With Patient Time: Total time spent is greater than 50% in coordination of care (as documented) at patient's floor/unit and/or counseling patient: Time with patient: less than 15 minutes Review of Systems Review of Systems: All systems reviewed & are unremarkable except as noted in HPI and below Exam Narrative: Fundus firm. Vaginal flow controlled. Incision dry and intact. Negative homans. No redness, warmth, or pain of lower ext. Const: General: comfortable Chest: Breast/axilla inspection: normal inspection of the breasts Resp: Effort & Inspection: normal respiratory effort Auscultation: clear to auscultation bilaterally Cardio: Rate: regular rate GI: GI Palp: Yes Soft to palpation Psych: Appearance: grossly normal Affect: normal affect Attitude: cooperative Thought content: Yes Normal thought content present Judgement: Good judgement present (Psych)
[2021-07-04] MEDS: MEASLES,MUMPS,RUBELLA VACCINE 0.5 ML VIAL SUB-Q (12:02)
[2021-07-06 13:54] VITALS: BP 131/72; PULSE 75; RESP 16; TEMP 37.2; O2SAT 100
--- NOTE | 2021-07-15 07:52 | PM.OBDSVD ---
DS: Admitting Diagnosis Discharge Date 07/04/21 Admitting Diagnosis Induction of labor OB - DS: Summary OB Procedures : None OB Procedures Intrapartum: OB Procedures: : None Peripartum Data Procedures: Procedures Operation Date: 07/02/21 13:25 Actual Procedure Side Surgeon p Section Narcisa San MD Time Spent with Patient Time attestation: Total time spent providing and/or coordinating discharge services: DS: Data Data Completed and Pending Completed studies during hospitalization: Pending at discharge 07/02/21 14:56 Surgical [PTH] Routine Discharge Plan Discharge Attending physician on discharge: Narcisa San Consulting providers: Narcisa San ; Tiffanie Patten ; Ladan Acosta Discharging Clinician: Ladan cAosta Patient Disposition: Home, Self-Care Activity: no driving and pelvic rest Diet: as tolerated Discharge Instructions: Education: Mom and Baby Guide Given to: Mother Follow-Up: Call your delivering provider's office for an appointment to be seen in: 2 Weeks Mom and baby should come to the [facility] for the follow-up appointment. Appointment Date/Time: July 06, 2021 at 9:00 am What to expect at your follow-up visit: Blood Pressure Check Physical Assessment Call [phone] if you are unable to keep your appointment time. BREAST CARE: * Wear a snug supportive bra. * For engorgement discomfort: Breast Feeding: * Apply warm moist washcloths * Express milk as needed to relieve engorgement * Wear loose clothing Bottle Feeding: * May apply ice packs * For sore nipples: * Identify correct latch-on * Apply warm moist washcloths before and after nursing * Air dry nipples after nursing * May apply Lansinoh cream to nipples ABDOMINAL INCISION: (if applicable) * Allow incision to air dry * Do NOT use lotions for powders on your incision * When showering, allow soap and water to run over the incision, but do not wash incision EPISIOTOMY/PERINEAL CARE: * Until bleeding stops, use your shae bottle after urinating * Change your pad frequently throughout the day * You may take sitz baths several times a day (fill your bathtub with warm water and soak for 20 minutes.) Do NOT bathe in the water * No tub baths until seen by your physician - You may shower ACTIVITY: * Rest as much as possible. * Do not exercise or lift anything heavier than your baby (such as laundry or other children.) * Avoid stairs or driving as much as possible. * Do not put anything into the vagina. No douching, tampons, or sexual activity until seen by physician. NOTIFY PHYSICIAN IF YOU HAVE ANY QUESTIONS OR IF ANY OF THE FOLLOWING SYMPTOMS OCCUR: * If your episiotomy or incision becomes red, swollen, or more painful than what you have experienced in the hospital. * If your vaginal bleeding becomes foul smelling. * If your vaginal bleeding becomes more heavy than a period or if your bleeding changes from pink to bright red. However, you may pass an occasional walnut-sized clot once or twice for the first week . * If you experience a sharp, shooting pain in you calves. * If you discover a hard, reddened area on your breast or if you experience flu-like symptoms. DIET: * Eat regular, well-balanced meals. * Drink plenty of fluids daily. If , drink to thirst. Stand Alone Forms: General Discharge Information Follow-up/Referrals: Narcisa San MD [Physician] - Discharge Medications: New ibuprofen 600 mg Tablet 600 mg PO Q6H PRN (Reason: Cramping) Qty: 20 RF: 0 hydrocodone-acetaminophen 5-325 mg tablet 1 tablet PO Q4H PRN (Reason: pain) Qty: 20 RF: 0 Continued albuterol 90 mcg/actuation Aerosol 90 mcg INHALATION DIRECTED PRN (Reason: Wheezing) RF: 0 escitalopram oxalate 20 mg T
== END 2021-07-04 15:03 | disposition home or self-care (01) | DRG 788 ==
LOC: ANHLDR 05:28 → ANHOB2 16:50
PROVIDERS: Advanced Practice Midwife; Obstetrics & Gynecology; Admitting Provider Obstetrics & Gynecology; PCP Family Medicine; Visit Provider Obstetrics & Gynecology
PROC: 10D00Z1 Extraction of Products of Conception, Low, Open Approach (ICD-10-PCS; CPT 59514; principal; 2021-07-02 13:25)
DX: O76 Abnormality in fetal heart rate and rhythm complicating labor and delivery (principal); Z3A.39 39 weeks gestation of pregnancy; Z37.0 Single live birth
CPT/HCPCS: 36415; 80307; 85025; 86592; 86850; 86900; 86901; 88307; 90710; A9270; J1885; J2270; J2405; J2590; J2795; J3480; J7120

== ENCOUNTER 2022-10-13 08:08 | Outpatient (CLI) | payer OTHER, SELFPAY ==
[2022-10-13 08:52] LABS: Hematocrit 37.1 % (37.0-47.0); Hemoglobin 12.2 g/dL (12.0-15.0); Mean Corpuscular HGB Conc 32.9 g/dl (32-36); Mean Corpuscular Hemoglobin 30.1 pg (26-34); Mean Corpuscular Volume 91.6 fl (80-100); Mean Platelet Volume 10.4 fl (7.4-10.4); Platelet Count Result 190 k/mm3 (150-375); Red Blood Count 4.05 M/mm3 (4.2-5.4); Red Cell Distribution Width 13.3 % (11.5-14.5); White Blood Count 9.8 K/mm3 (4.5-10.0)
[2022-10-14 12:32] LABS: Rapid Plasma Reagin Non-Reactive (NonReactive)
== END 2022-10-13 08:09 | disposition home or self-care (01) ==
PROVIDERS: PCP Family Medicine; Visit Provider Obstetrics & Gynecology
DX: Z34.93 Encounter for supervision of normal pregnancy, unspecified, third trimester (principal); Z3A.00 Weeks of gestation of pregnancy not specified
CPT/HCPCS: 36415; 85027; 86592; 86850; 86900; 86901

== ENCOUNTER 2022-10-14 05:30 | Inpatient (IN) | payer OTHER, SELFPAY ==
[2022-10-14] VITALS (41 sets, daily range): BP systolic 99–122; BP diastolic 37–71; PULSE 60–82; RESP 13–20; TEMP 36.2–37.1; O2SAT 94–100; BMI 46.5
--- NOTE | 2022-10-14 05:53 | LDADM ---
This patient, Tessa Taylor, was admitted to Labor/Delivery/Recovery 120 on 10/14/22 at 05:30. Plans for labor, pain management and were discussed with patient. Patient/family oriented to hospital policies and general routines including ID bracelet, bed and alarms, visiting hours, pain management, procedures, bathroom and other care routines, personal items, smoking policy, room service/diet and guest tray routines, infant security routines, and visiting hours. Patient/Family are encouraged to report perceived risks to care and to ask questions if they do not understand what they are told or what they should do. See OBIX for further documentation.
[2022-10-14] MEDS: LACTATED RINGERS 1,000 ML 125 ML IV CONT (07:00)
--- NOTE | 2022-10-14 07:05 | WPDANESEPPF ---
Anes - Initial Pre Proc Eval Procedure: Operation Date: 10/14/22 07:30 Proposed Procedures p Repeat Section - Bridget Escamilla MD Date/Time: 10/14/22 07:05 Surgeon: Bridget Escamilla MD Pre Op Diagnosis: Previous C section Pre Op Diagnosis: C/S Patient Data Age: 32 Gender: F Height: 1.7 m Weight: 134.8 kg Last Vital Signs Pulse 75 10/14/22 06:15 BP 112/47 L 10/14/22 06:15 O2 Del Method Room Air 10/14/22 05:52 Allergies Allergy/AdvReac Type Severity Reaction Status Date / Time No Known Allergies Allergy Verified 09/26/22 15:42 Home Medications Medication Instructions Recorded Confirmed Type albuterol 90 mcg/actuation aerosol 90 mcg inhalation DIRECTED PRN 06/14/21 09/26/22 History inhaler Wheezing escitalopram oxalate 20 mg tablet 20 mg PO DAILY 06/14/21 09/26/22 History vit no.95-ferrous 1 tablet PO DAILY 06/14/21 09/26/22 History fumarate 28 mg-folic acid 800 mcg tablet () Hgb 12.2, Plt 190 : gestational age (DARIUS 10/21/22) Patient hx anesthesia problems: none Family hx anesthesia problems: none Results Review: All pre-operative results and documents have been reviewed as part of the pre-operative evaluation. [facility] Family History Family History Father Malignant neoplasm of prostate Son Cleft palate and cleft lip Social History Social History Smoking status: Never smoker Second hand tobacco smoke exposure: Yes Substance use: never Lack of Transportation: No Lack of Food: Never True Current Housing: I Have Housing Concerned About Future Housing: No Difficulty Paying Gas/Electric Bills: No Difficulty Paying for Meds: No Currently Unemployed: No Education: High School Diploma/GED Difficulty w/ Childcare or Family Care: No Spiritual care concerns: No Comments h/o c section, anxiety, asthma, morbid obesity Anes - Eval Final PreProcedure Day of Procedure 10/14/22 07:05 Patient weight: morbidly obese Heart: regular rate and rhythm Lungs: normal air movement (used inhaler earlier today) Airway: Mallampati scale class II Neurological: alert and oriented Last oral intake: >/= 8 hours ASA classification: III Emergent: no Anesthetic plan: proceed Anesthesia type and monitoring: regional spinal Other findings: PF IT Morphine Results Review: All pre-operative results and documents have been reviewed as part of the pre-operative evaluation. Informed Consent: The patient's anesthetic plan and its attendant risks and benefits were discussed with the patient/family/POA. Questions were solicited and answers provided to the satisfaction of the patient/family/POA.
[2022-10-14] MEDS: ceFAZolin 3 GM/D5W 100 ML 100 ML IVPB (07:20)
--- NOTE | 2022-10-14 07:20 | PM.IMHP ---
H&P: HPI History of Present Illness Date/Time: 10/14/22 07:20 Chief Complaint: repeat CS Narrative: Tessa is a 32yo at 39.0 here for second CS. Had VAVD followed by emergent CS and desires repeat. has been complicated only by obesity and anxiety/depression on lexapro. She also has a child with cleft lip/palate, anatomy wnl this . Review of Systems Review of Systems: All systems reviewed & are unremarkable except as noted in HPI and below PMFSH Family History Family History Father Malignant neoplasm of prostate Son Cleft palate and cleft lip Social History Social History Smoking status: Never smoker Second hand tobacco smoke exposure: Yes Substance use: never Lack of Transportation: No Lack of Food: Never True Current Housing: I Have Housing Concerned About Future Housing: No Difficulty Paying Gas/Electric Bills: No Difficulty Paying for Meds: No Currently Unemployed: No Education: High School Diploma/GED Difficulty w/ Childcare or Family Care: No Spiritual care concerns: No Meds Home Medications and Allergies Home Medications Medication Instructions Recorded Confirmed Type albuterol 90 mcg/actuation aerosol 90 mcg inhalation DIRECTED PRN 06/14/21 09/26/22 History inhaler Wheezing escitalopram oxalate 20 mg tablet 20 mg PO DAILY 06/14/21 09/26/22 History vit no.95-ferrous 1 tablet PO DAILY 06/14/21 09/26/22 History fumarate 28 mg-folic acid 800 mcg tablet () Allergies Allergy/AdvReac Type Severity Reaction Status Date / Time No Known Allergies Allergy Verified 09/26/22 15:42 Vital Signs Vital Signs - 24 hr 10/14/22 05:52 10/14/22 05:52 10/14/22 06:00 Pulse Rate 82 81 Blood Pressure 115/54 L 115/60 Oxygen Delivery Room Air 10/14/22 06:15 Pulse Rate 75 Blood Pressure 112/47 L Oxygen Delivery Exam Const: General: no acute distress Resp: Effort & Inspection: normal respiratory effort Auscultation: clear to auscultation bilaterally Cardio: Rate: regular rate Rhythm: regular rhythm GI: GI Palp: Yes Soft to palpation Extrem: General: normal to inspection Assessment and Plan Assessment and plan (1) History of delivery: Code(s): Z98.891 - History of uterine scar from previous surgery Status: Acute Plan Consented for R CS, discussed RBA, questions answered, will proceed.
--- NOTE | 2022-10-14 07:26 | WPDHPUPDATE1 ---
History and Physical Update Update Date/Time: 10/14/22 07:26 History and Physical has been reviewed, including an updated exam of the patient. There are NO changes in the patient's condition. Risks, benefits, and alternatives have been discussed and questions answered. Patient agrees to proceed with procedure.
--- NOTE | 2022-10-14 08:28 | P.PCNOB_ITS ---
OB - Delivery Note Procedure Delivery date: 10/14/22 Procedure: Procedures Operation Date: 10/14/22 07:30 <No data on this case meets the specified criteria> Repeat low transverse section Events: Previous Delivery Intrapartal Events: Other (uterine window 5x3cm) Route of delivery: Specimen: Yes (placenta) Quantitative Blood Loss (ml): 630 Anesthesia type: Spinal Disposition: Floor Complications: none but DUE TO LARGE UTERINE WINDOW I RECOMMEND DELIVERY AT 38 WEEKS IN SUBSEQUENT Narrative: The patient was taken to the OR and received spinal anesthesia. She was placed in dorsal supine position with left lateral tilt. SCDs and webb were placed. She was prepped and draped in the normal sterile fashion. A Pfannensteil skin incision was made and carried through to the underlying layer of fascia. The fascia was incised in the midline and then extended laterally using Tobar scissors. The muscles were in the midline and t he peritoneum was entered bluntly. The peritoneal incision was extended inferiorly and superiorly with care to avoid the bladder. The bladder blade was then inserted. Upon visualization of the lower uterine segment, a 5x3cm uterine window was present with only amniotic membranes intact. AROM was performed and fluid was noted to be clear. The uterine window was extended bluntly and the head was delivered, followed by the remainder of the baby. The baby's oropharynx was suctioned. After 30 seconds, the cord was clamped and cut and the was handed off. Cord blood was obtained and the placenta was then removed manually. The uterus was exteriorized. A moist lap sponge was used to curette the endometrium. The uterine incision was then closed with two layers of 0-Vicryl in a running, locking fashion. Good hemostasis was noted. The posterior cul de sac was irrigated with normal saline and cleared of all clot and debris. The uterus was returned to the abdomen. Both lateral gutters were then irrigated. The rectus muscles were inspected and found to be hemostatic. The fascia was reapproximated using 0-Vicryl in running fashion. The subcutaneous tissue was irrigated with normal saline and made hemostatic with Bovie electrocautery. The subcutaneous tissue was reapproximated with a layer of running 2-0 plain gut. The skin was then closed with absorbable darren. Steri strips and a bandage were applied. The uterus was evacuated. The patient tolerated the procedure very well. All counts were correct. She was taken to the recovery room in good condition. [place] Baby Date of : 10/14/22 Time of : 07:50 Weeks of gestation at delivery: 39 Infant gender: Male Weight (pounds): 8 Weight (ounces): 7 presentation: vertex Placenta delivery description: Manual Removal Cord Vessel Description: 3 Vessels, Nuchal Cord and Delayed Cord Clamping score one minute: 9 score five minutes: 9
[2022-10-14] MEDS: OXYTOCIN 30 UNITS/NS 500 ML 30 UNITS/500 ML BAG 125 UNITS IV CONT (10:06)
[2022-10-14] MEDS: ONDANSETRON INJ 4 MG/2 ML VIAL IV PUSH (10:06)
[2022-10-14] MEDS: KETOROLAC 30 MG/ML VIAL (*BKC) IV PUSH (15:10)
[2022-10-14] MEDS: IBUPROFEN 600 MG TABLET PO (21:14)
[2022-10-15 00:05] VITALS: BP 121/69; PULSE 67; RESP 20; TEMP 36.9; O2SAT 96
[2022-10-15 03:45] VITALS: BP 112/62; PULSE 66; RESP 18; TEMP 36.8; O2SAT 96
[2022-10-15 05:14] LABS: Basophils Percent Auto 0.3 % (0.2-1.2); Eosinophils Absolute Auto 0.2 K/mm3 (0-0.3); Eosinophils Percent Auto 1.4 % (0-4.4); Hemoglobin 11.2 g/dL (12.0-15.0); Immature Granulocyte Absolute 0.05 K/mm3 (0.00-0.031); Immature Granulocyte Percent A 0.5 % (0-0.5); Lymphocytes Absolute Auto 1.42 K/mm3 (0.9-3.2); Lymphocytes Percent Auto 13.1 % (18.3-44.2); Mean Corpuscular HGB Conc 32.9 g/dl (32-36); Mean Corpuscular Volume 91.2 fl (80-100); Monocytes Absolute Auto 0.8 K/mm3 (0.1-0.6); Monocytes Percent Auto 7.8 % (2.6-8.5); Neutrophils Absolute Auto 8.3 K/mm3 (1.3-6.7); Neutrophils Percent Auto 76.9 % (45.5-73.1); Platelet Count Result 174 k/mm3 (150-375); Red Blood Count 3.73 M/mm3 (4.2-5.4); Red Cell Distribution Width 13.4 % (11.5-14.5); White Blood Count 10.8 K/mm3 (4.5-10.0)
[2022-10-15] MEDS: IBUPROFEN 600 MG TABLET PO ×3 (05:38→19:43)
[2022-10-15 07:30] VITALS: BP 112/63; PULSE 69; RESP 18; TEMP 36.1; O2SAT 98
[2022-10-15] MEDS: HYDROcodone/acetaminophen (*CRX) 5-325 MG TABLET 1 TAB PO ×3 (08:29→20:59)
[2022-10-15] MEDS: DOCUSATE SODIUM 100 MG CAPSULE PO ×2 (08:29→16:13)
[2022-10-15] MEDS: MULTIVIT/MIN/PREN/FOL AC/IRON TABLET 1 TAB PO (08:29)
[2022-10-15] MEDS: ESCITALOPRAM OXALATE 10 MG TABLET 20 MG PO (08:31)
--- NOTE | 2022-10-15 09:38 | P.PNOB_ITS ---
OB - PN: Subj Subjective Date/time seen: 10/15/22 09:38 s/p delivery day 1, doing well, ambulating OB - PN: Obj Data Labs 10/15/22 05:08 Labs: Laboratory Results - last 24 hr 10/15/22 05:08 WBC 10.8 H RBC 3.73 L Hgb 11.2 L Hct 34.0 L MCV 91.2 MCH 30.0 MCHC 32.9 RDW 13.4 Plt Count 174 MPV 10.0 Immature Gran % (Auto) 0.5 Neut % (Auto) 76.9 H Lymph % (Auto) 13.1 L [place] % (Auto) 7.8 Eos % (Auto) 1.4 Baso % (Auto) 0.3 Lymph # (Auto) 1.42 [place] # (Auto) 0.8 H Eos # (Auto) 0.2 Baso # (Auto) 0.0 Abs Immat Gran (auto) 0.05 H Absolute Neuts (auto) 8.3 H Absolute Nucleated RBC 0.0 Nucleated RBC % 0.0 OB - PN A/P Plan day: 1 Time Spent With Patient Time: Total time spent is greater than 50% in coordination of care (as documented) at patient's floor/unit and/or counseling patient: Review of Systems Review of Systems: All systems reviewed & are unremarkable except as noted in HPI and below Exam Narrative: Incision CDI
--- NOTE | 2022-10-15 14:23 | WPDANLDPN2 ---
Anes-Prog Note L&D Date/Time: 10/15/22 14:23 Comfortable throughout: section Neuraxial method: spinal Epidural/Spinal procedure site: clean & non-tender Neuro status: Neuro function grossly intact. Cardiovascular status: normal Respiratory status: normal Airway patency: baseline Mental status: baseline Post-Op hydration status: normal Vital Signs: Last Vital Signs Temp 36.1 C L 10/15/22 07:30 Pulse 69 10/15/22 07:30 Resp 18 10/15/22 07:30 BP 112/63 10/15/22 07:30 Pulse Ox 98 10/15/22 07:30 O2 Del Method Room Air 10/15/22 03:45 Pain score (VAS): 3/10 I/O: Intake & Output 10/14/22 10/15/22 10/15/22 23:59 07:59 15:59 Intake Total 3000 700 500 Output Total 600 2600 1000 Balance 2400 -1900 -500 Post-procedural complaints: none Patient feedback: Patient satisfied with anesthetic care.
--- NOTE | 2022-10-15 14:24 | WPDANLDNPN2 ---
Anes-Prog Note L&D-Neuraxial Date/Time: 10/15/22 14:24 Neuraxial medications: intrathecal PF morphine Opiod-related complaints: pruritis mild, no treatment Patient feedback: Patient satisfied with post-operative pain management.
[2022-10-15] MEDS: SIMETHICONE 80 MG TAB.CHEW PO ×2 (16:13→20:59)
[2022-10-15] MEDS: HYDROcodone/acetaminophen (*CRX) 10-325 MG TABLET 1 TAB PO (16:13)
[2022-10-15 19:50] VITALS: BP 134/75; PULSE 68; RESP 18; TEMP 36.8; O2SAT 99
[2022-10-16] MEDS: SIMETHICONE 80 MG TAB.CHEW PO (05:15)
[2022-10-16] MEDS: HYDROcodone/acetaminophen (*CRX) 5-325 MG TABLET 1 TAB PO ×2 (05:15→13:27)
[2022-10-16] MEDS: ESCITALOPRAM OXALATE 10 MG TABLET 20 MG PO (08:14)
[2022-10-16] MEDS: IBUPROFEN 600 MG TABLET PO (08:14)
[2022-10-16] MEDS: MULTIVIT/MIN/PREN/FOL AC/IRON TABLET 1 TAB PO (08:14)
[2022-10-16] MEDS: DOCUSATE SODIUM 100 MG CAPSULE PO (08:14)
[2022-10-16 08:15] VITALS: BP 129/60; PULSE 88; RESP 16; TEMP 36.2; O2SAT 100
--- NOTE | 2022-10-16 08:17 | P.PNOB_ITS ---
OB - PN: Subj Subjective Date/time seen: 10/16/22 08:17 s/p section day 2, doing well, no complaints, b reastfeeding OB - PN: Obj Data Labs 10/15/22 05:08 OB - PN A/P Plan day: 2 Plan: routine care and discharge home Time Spent With Patient Time: Total time spent is greater than 50% in coordination of care (as documented) at patient's floor/unit and/or counseling patient: Review of Systems Review of Systems: All systems reviewed & are unremarkable except as noted in HPI and below Exam Narrative: Incion CDI Const: General: cooperative, healthy appearing and comfortable
--- NOTE | 2022-10-16 08:22 | PM.OBDSVD ---
DS: Admitting Diagnosis Discharge Date 10/16/22 Admitting Diagnosis repeat delivery DS: Discharge Diagnosis Discharge Diagnosis (1) Post-operative pain: Code(s): G89.18 - Other acute postprocedural pain Status: Acute (2) deliv NOS-unsp: Status: Acute OB - DS: Summary OB Procedures : None OB Procedures Intrapartum: OB Procedures: : None Peripartum Data Procedures: Procedures Operation Date: 10/14/22 07:30 Actual Procedure Side Surgeon p Repeat Section Not Applicable Bridget Escamilla MD Time Spent with Patient Time attestation: Total time spent providing and/or coordinating discharge services: Discharge Plan Discharge Attending physician on discharge: Narcisa San Discharging Clinician: Tiffanie Patten Patient Disposition: Home, Self-Care Activity: pelvic rest Diet: regular Patient Instructions: Antibiotic Form Stand Alone Forms: General Discharge Information Follow-up/Referrals: Bridget Escamilla MD [Physician] - 1 Week Discharge Medications: Continued albuterol 90 mcg/actuation Aerosol 90 mcg INHALATION DIRECTED PRN (Reason: Wheezing) escitalopram oxalate 20 mg Tablet 20 mg PO DAILY PNV cmb#95-ferrous fumarate-FA [] 28 mg iron- 800 mcg Tablet 1 tablet PO DAILY Date of admission: 10/14/22 05:30 Primary Care Provider: Diamond,Ashlee Bowles Admitting Provider: Bridget Escamilla Attending physician on admission: Bridget Escamilla Condition: Stable
--- NOTE | 2022-10-16 09:04 | PC.NURSE ---
Patient viewed the discharge video Mother & Baby Care, The First Two Weeks . Patient was given the opportunity and encouraged to ask questions. Patient verbalized understanding of information shared and has been given the mother/baby guide for home reference.
--- NOTE | 2022-10-16 10:50 | PC.NURSE ---
Patient advised that per Dr. Ruano, he would like her to supplement after each with either pumped breast milk and/or formula, at least 15-20mls or more as baby's needs increase, after each feeding until baby is seen by his appraisal specialist.
[2022-10-17 10:36] VITALS: BP 121/68; PULSE 70; RESP 18; TEMP 36.2; O2SAT 98
== END 2022-10-16 14:45 | disposition home or self-care (01) | DRG 788 ==
LOC: ANHOB2 10-16 09:03 → ANHLDR 10-17 10:53 → ANHOB2 10-17 10:53
PROVIDERS: Admitting Provider Obstetrics & Gynecology; PCP Family Medicine; Visit Provider Advanced Practice Midwife
PROC: 10D00Z1 Extraction of Products of Conception, Low, Open Approach (ICD-10-PCS; CPT 59514; principal; 2022-10-14 07:30)
DX: O69.81X0 Labor and delivery complicated by cord around neck, without compression, not applicable or unspecified (principal); O99.214 Obesity complicating childbirth; O99.344 Other mental disorders complicating childbirth; F41.8 Other specified anxiety disorders; F32.A Depression, unspecified; Z3A.39 39 weeks gestation of pregnancy; Z37.0 Single live birth
CPT/HCPCS: 36415; 85025; A9270; J0131; J0690; J1885; J2274; J2370; J2405; J2590; J7120

== ENCOUNTER 2022-11-06 20:43 | Observation (INO) | payer OTHER, SELFPAY ==
[2022-11-06] VITALS (8 sets, daily range): BP systolic 142–144; BP diastolic 84–93; PULSE 77–93; RESP 16–22; TEMP 36.1; O2SAT 91–100
--- NOTE | ~2022-11-06 | XR_ITS ---
Clinical Indication: Shortness of breath PA and lateral views of the chest: Comparison: 12/03/2014 Findings: The lungs are clear, without evidence of focal consolidation or pleural effusion. Cardiome diastinal silhouette is within normal limits. Bones and soft tissues are unremarkable. Impression: Normal chest. Reviewed, dictated and finalized at [facility]. Impression: Normal chest.
--- NOTE | ~2022-11-06 | CT_ITS ---
Clinical Indication: Hypoxia, shortness of breath CT Scan of the Chest with Contrast: Technique: Contiguous sections were acquired throughout the chest after intravenous administration of 100 cc of Omnipaque 350. Dose reduction technique was used on this scan by utilizing automated expos ure control and iterative reconstruction technique. The dose-length product (DLP) was 884.93 mGy-cm. Findings: Peripherally calcified left thyroid lobe nodule noted. There is no evidence of any significant mediastinal, hilar or axillary lymphadenopathy. There is no f illing defect in the pulmonary arterial tree to suggest pulmonary embolus. There is no evidence of ao rtic dissection or aneurysm. There is no evidence of pleural or pericardial effusion. The lungs are clear. No pulmonary nodules or infiltrates are noted. Images through the upper abdomen reveal no abnormalities. Impression: No evidence of pulmonary embolus, aortic dissection, or aortic aneurysm. Clear lungs. Reviewed, dictated and finalized at [facility]. Impression: No evidence of pulmonary embolus, aortic dissection, or aortic aneurysm. Clear lungs.
--- NOTE | 2022-11-06 20:49 | ECG_ITS ---
Measurements Intervals [place] Rate: 94 P: 71 TN: 120 QRS: 82 QRSD: 88 T: 48 QT: 338 QTc: 423 Interpretive Statements SINUS RHYTHM WITH SINUS ARRHYTHMIA NONSPECIFIC T-WAVE ABNORMALITY- INFERIOR LEADS BASELINE ARTIFACT- I, AVR, AVL BORDERLINE ECG NO PREVIOUS ECG AVAILABLE FOR COMPARISON Electronically Signed On 11-07-2022 6:34:43 CDT by Luis Fernando Ocampo D.O.
[2022-11-06 21:50] LABS: Basophils Percent Auto 0.5 % (0.2-1.2); Eosinophils Absolute Auto 0.4 K/mm3 (0-0.3); Eosinophils Percent Auto 5.9 % (0-4.4); Hematocrit 41.1 % (37.0-47.0); Hemoglobin 13.7 g/dL (12.0-15.0); Immature Granulocyte Absolute 0.05 K/mm3 (0.00-0.031); Immature Granulocyte Percent A 0.8 % (0-0.5); Lymphocytes Percent Auto 29.4 % (18.3-44.2); Mean Corpuscular HGB Conc 33.3 g/dl (32-36); Mean Corpuscular Hemoglobin 29.3 pg (26-34); Mean Corpuscular Volume 87.8 fl (80-100); Mean Platelet Volume 9.8 fl (7.4-10.4); Monocytes Absolute Auto 0.4 K/mm3 (0.1-0.6); Monocytes Percent Auto 6.8 % (2.6-8.5); Neutrophils Absolute Auto 3.7 K/mm3 (1.3-6.7); Neutrophils Percent Auto 56.6 % (45.5-73.1); Platelet Count Result 254 k/mm3 (150-375); Red Blood Count 4.68 M/mm3 (4.2-5.4); White Blood Count 6.5 K/mm3 (4.5-10.0)
[2022-11-06 22:00] LABS: Alanine Aminotransferase 24 U/L (6-35); Albumin Level 4.5 g/dL (3.5-5.1); Alkaline Phosphatase 90 U/L (38-126); Anion Gap 4 mmol/L (8-16); Aspartate Amino Transferase 26 U/L (14-36); Bilirubin,Total 0.5 mg/dL (0.2-1.3); Blood Urea Nitrogen 9 mg/dL (7-17); Calcium 9.2 mg/dL (8.4-10.2); Carbon Dioxide 27 mmol/L (22-30); Chloride 107 mmol/L (98-107); Estimated CRCL calculation 123 ml/min; Estimated Glomerular Filt Rate > 60; Glucose 93 mg/dL (65-110); Potassium 4.1 mmol/L (3.4-5.0); Sodium 138 mmol/L (137-145)
--- NOTE | 2022-11-06 22:48 | ED.SOB ---
HPI - SOB/Dyspnea General Chief Complaint: Shortness of Breath/Dyspnea Stated Complaint: sob, asthma hx, post pardum 3 weeks Time Seen by Provider: 11/06/22 22:40 History of Present Illness HPI Narrative: 32-year-old female with a history of asthma here for evaluation of shortness of breath over the past day and a half. History is limited, patient speaking in one-word sentences, tripoding. She has a history of asthma and has used her albuterol inhalers prior to arrival without success. She is 3 weeks . Related Data Home Medications Medication Instructions Recorded Confirmed albuterol 90 mcg/actuation aerosol 90 mcg inhalation DIRECTED PRN 06/14/21 09/26/22 inhaler Wheezing escitalopram oxalate 20 mg tablet 20 mg PO DAILY 06/14/21 09/26/22 vit no.95-ferrous 1 tablet PO DAILY 06/14/21 09/26/22 fumarate 28 mg-folic acid 800 mcg tablet () Allergies Allergy/AdvReac Type Severity Reaction Status Date / Time No Known Allergies Allergy Verified 11/06/22 20:44 Review of Systems Review of Systems: Gen: Denies fevers or chills Eyes: Denies eye pain or visual change ENT: Denies congestion Respiratory: Reports shortness of breath CV: Denies chest pain or palpitations GI: Denies abdominal pain nausea, emesis or diarrhea : denies burning, urgency, frequency or hematuria Musculoskeletal: Denies back pain or muscle pain Neuro: Denies numbness, tingling, weakness or focal weakness Skin: Denies rash Except as documented, all other systems reviewed and negative COUNT INCLUDES [facility] Family History Family History Father Malignant neoplasm of prostate Son Cleft palate and cleft lip Social History Social History Smoking status: Never smoker Second hand tobacco smoke exposure: Yes Substance use: never Lack of Transportation: No Lack of Food: Never True Current Housing: I Have Housing Concerned About Future Housing: No Difficulty Paying Gas/Electric Bills: No Difficulty Paying for Meds: No Currently Unemployed: No Education: High School Diploma/GED Difficulty w/ Childcare or Family Care: No Spiritual care concerns: No Exam Narrative: APPEARANCE: Tripoding, speaking in one-word sentences, audible wheeze Head: Normocephalic and atraumatic. EYES: PERRLA/EOMI, conjunctivae clear NOSE: No nasal drainage EARS: External ear normal in appearance THROAT: Oropharynx is clear. Mucous membranes are moist. NECK: Supple. No adenopathy, no masses. RESPIRATORY: Diffuse inspiratory and expiratory wheezing throughout lung butler. CARDIOVASCULAR: Regular rate and rhythm without murmurs, rubs, or gallops. ABDOMINAL: Normoactive bowel sounds. Soft, nontender, nondistended. No rebound tenderness or guarding. MUSCULOSKELETAL: Extremities are warm and well-perfused. Moves all extremities well. No edema. NEURO: Normal speech. No focal neurologic deficits. SKIN: Skin is warm and dry. No rashes. PSYCHIATRIC: Normal affect/mood.. Course Vital Signs Vital signs: Vital Signs Temperature 97.0 F L 11/06/22 20:44 Pulse Rate 89 11/06/22 20:44 Respiratory Rate 22 H 11/06/22 20:44 Blood Pressure 144/93 H 11/06/22 20:44 Pulse Oximetry 96 11/06/22 20:44 Temperature 97.0 F L 11/06/22 20:44 Pulse Rate 70 11/07/22 02:00 Respiratory Rate 15 11/07/22 02:00 Blood Pressure 161/86 H 11/07/22 02:00 Pulse Oximetry 93 11/07/22 02:00 Oxygen Delivery Nasal Cannula 11/07/22 00:42 Oxygen Flow Rate 2 11/07/22 00:42 MDM - SOB/Dyspnea MDM Narrative Medical decision making narrative: 32-year-old female with history of asthma here in respiratory distress with diffuse wheezing in her lung butler. She was given an hour-long breathing treatment, steroids and magnesium with improvement of her symptoms, now able to speak in full sentences but still has diffuse wheezing
[2022-11-06] MEDS: ALBUTEROL SULFATE NEB 2.5 MG/3 ML INH 10 MG INHALATION (22:56)
--- NOTE | 2022-11-06 22:57 | PC.NURSE ---
Respiratory at bedside for treatment
[2022-11-06] MEDS: MAGNESIUM SULF 2 GM/WATER 50ML 2 GM/50 ML BAG IVPB (23:39)
[2022-11-06] MEDS: predniSONE 20 MG TABLET 60 MG PO (23:39)
[2022-11-07] VITALS (30 sets, daily range): BP systolic 109–161; BP diastolic 64–94; PULSE 67–102; RESP 13–26; TEMP 36.3–37.2; O2SAT 91–100; BMI 40.8
--- NOTE | 2022-11-07 00:06 | PC.NURSE ---
RT in room giving patient another treatment.
[2022-11-07] MEDS: ALBUTEROL SULFATE NEB 2.5 MG/3 ML INH INHALATION ×6 (00:07→19:42)
[2022-11-07 00:18] LABS: Influenza A QL RT-PCR Negative (Negative); Influenza B QL RT-PCR Negative (Negative); SARS-CoV-2 RNA PCR Negative
[2022-11-07 01:24] LABS: Troponin I < 0.012 ng/mL (0.000-0.034)
--- NOTE | 2022-11-07 02:30 | PC.NURSE ---
Patient ambulated to the bathroom and back to her room with a steady gait with portable oxygen. Patient tolerated well.
[2022-11-07 03:10] LABS: Magnesium 2.2 mg/dL (1.6-2.3)
--- NOTE | 2022-11-07 03:42 | PC.NURSE ---
This patient, Tessa Taylor, was admitted to Intensive Care Unit-8. Patient/family oriented to hospital policies and general routines including ID bracelet, bed and alarms, visiting hours, pain management, procedures, bathroom and other care routines, personal items, smoking policy, room service/diet, and visiting hours. Information on how to activate the Rapid Response Team has been discussed. Patient/Family are encouraged to report perceived risks to care and to ask questions if they do not understand what they are told or what they should do.
--- NOTE | 2022-11-07 09:06 | PM.IMHP ---
H&P: HPI History of Present Illness Date/Time: 11/07/22 09:06 Chief Complaint: sob Narrative: 32-year-old female with past medical history significant for moderate to severe asthma, allergic rhinitis, chronic sinusitis, eczema is presenting with shortness of breath, chest tightness and wheezing. In the ER, she was given a continuous albuterol treatment which seemed to relieve some of her symptoms as well as IV Solu-Medrol and magnesium. Of note, she has approximately 1 month from a repeat . She states she was on Symbicort several years ago but has not kept up with this medication. She now uses her albuterol every day, sometimes several times a day. She states that she refuses to take Flonase because she does not like the way it smells or feels. She was on Zyrtec in the past, but was unable to tolerate Singulair and did not like the Zyrtec and Claritin. She states her asthma episodes are usually triggered by her allergy symptoms in the spring and fall. Review of Systems Review of Systems: 12 point review of systems was assessed and was negative except as noted in the [facility]PI [facility] Past Medical History Medical History Allergic rhinitis Asthma Chronic sinusitis Depression Eczema Surgical History Surgical History History of delivery Family History Family History Father Malignant neoplasm of prostate Son Cleft palate and cleft lip Social History Social History Smoking packs per day: 0.3 Smoking cigarettes per day: 6.0 Years smoked: 15 Smoking pack-years: 4.50 Smoking status: Former smoker Tobacco type: cigarettes Second hand tobacco smoke exposure: Yes Alcohol intake: never Substance use: never Substance use type: does not use Lack of Transportation: No Lack of Food: Never True Current Housing: I Have Housing Concerned About Future Housing: Decline to Answer Difficulty Paying Gas/Electric Bills: Decline to Answer Difficulty Paying for Meds: Decline to Answer Currently Unemployed: Decline to Answer Education: Decline to Answer Difficulty w/ Childcare or Family Care: Decline to Answer Spiritual care concerns: No Meds Home Medications and Allergies Home Medications Medication Instructions Recorded Confirmed Type escitalopram oxalate 20 mg tablet 20 mg PO DAILY 06/14/21 11/07/22 History vit no.95-ferrous 1 tablet PO DAILY 06/14/21 11/07/22 History fumarate 28 mg-folic acid 800 mcg tablet () albuterol sulfate 90 mcg/actuation 2 puff inhalation Q4-6H PRN 11/07/22 11/07/22 History aerosol inhaler Shortness Of Breath Allergies Allergy/AdvReac Type Severity Reaction Status Date / Time No Known Allergies Allergy Verified 11/07/22 03:49 Vital Signs Vital Signs - 24 hr 11/06/22 20:44 11/06/22 21:38 11/06/22 22:57 Temperature 97.0 F L Pulse Rate 89 93 77 Respiratory Rate 22 H 20 20 Blood Pressure 144/93 H Pulse Oximetry 96 96 Oxygen Delivery Oxygen Flow Rate Fraction of Inspired Oxygen 11/06/22 23:36 11/06/22 23:46 11/06/22 23:40 Temperature Pulse Rate 89 84 Respiratory Rate 18 20 Blood Pressure 142/84 H Pulse Oximetry 100 91 Oxygen Delivery Room Air Oxygen Flow Rate Fraction of Inspired Oxygen 11/07/22 00:09 11/07/22 00:16 11/07/22 00:42 Temperature Pulse Rate 74 76 Respiratory Rate 20 20 Blood Pressure Pulse Oximetry 94 Oxygen Delivery Nasal Cannula Oxygen Flow Rate 2 Fraction of Inspired Oxygen 11/06/22 23:42 11/06/22 23:45 11/07/22 00:09 Temperature Pulse Rate 93 81 76 Respiratory Rate 16 18 13 Blood Pressure Pulse Oximetry 93 92 100 Oxygen Delivery Oxygen Flow Rate Fraction of Inspired Oxygen
[2022-11-07] MEDS: ESCITALOPRAM OXALATE 10 MG TABLET 20 MG PO (09:26)
[2022-11-07] MEDS: predniSONE 20 MG TABLET 40 MG PO (09:27)
[2022-11-07] MEDS: MULTIVIT/MIN/PREN/FOL AC/IRON TABLET 1 TAB PO (09:27)
[2022-11-07] MEDS: BUDESONIDE RESPULE NEB 0.5 MG/2 ML AMP INHALATION (19:42)
[2022-11-07] MEDS: ACETAMINOPHEN 325 MG TABLET 650 MG PO (20:25)
[2022-11-07] MEDS: KETOROLAC 15 MG/ML VIAL (*BKC) IV PUSH (22:49)
--- NOTE | 2022-11-07 23:26 | PC.NURSE ---
This patient transferred to room 330 at 2300 with all belongings, medication, and chart. Report given to Lulu BENITO at 2245.
[2022-11-08] VITALS (9 sets, daily range): BP systolic 131–134; BP diastolic 77–94; PULSE 70–93; RESP 18–20; TEMP 36–36.3; O2SAT 95–99
--- NOTE | 2022-11-08 00:33 | PC.NURSE ---
Patient arrived to unit @ 2311 via wheelchair. Oriented to unit. Questions answered.
[2022-11-08] MEDS: ALBUTEROL SULFATE NEB 2.5 MG/3 ML INH INHALATION ×4 (00:35→11:36)
[2022-11-08] MEDS: BUDESONIDE RESPULE NEB 0.5 MG/2 ML AMP INHALATION (08:08)
[2022-11-08] MEDS: ESCITALOPRAM OXALATE 10 MG TABLET 20 MG PO (09:08)
[2022-11-08] MEDS: predniSONE 20 MG TABLET 40 MG PO (09:08)
[2022-11-08] MEDS: MULTIVIT/MIN/PREN/FOL AC/IRON TABLET 1 TAB PO (09:08)
--- NOTE | 2022-11-08 15:11 | PM.DS ---
DS: Admitting Diagnosis Discharge Date 11/08/22 Admitting Diagnosis sob DS: Discharge Diagnosis Discharge Diagnosis (1) Asthma with acute exacerbation: Code(s): J45.901 - Unspecified asthma with (acute) exacerbation Status: Acute Assessment and Plan: cont albuterol, prednisone 95% on 2L nc, wean as able Will need pulmonology consultation at discharge Start patient on daily inhaled corticosteroid (2) Depression: Code(s): F32.A - Depression, unspecified Status: Acute Assessment and Plan: cont lexapro (3) History of delivery: Code(s): Z98.891 - History of uterine scar from previous surgery Status: Acute Assessment and Plan: s/p repeat 10/14/22 Plan DVT prophylaxis with SCDs GI prophylaxis not indicated Code status full code DS: Summary Hospital Course Hospital Course: 32-year-old female with past medical history significant for moderate to severe asthma, allergic rhinitis, chronic sinusitis, eczema is presenting with shortness of breath, chest tightness and wheezing.? In the ER, she was given a continuous albuterol treatment which seemed to relieve some of her symptoms as well as IV Solu-Medrol and magnesium.? Of note, she has approximately 1 month from a repeat . She improved significantly on oral prednisone, albuterol nebulizers, Pulmicort. She had no wheezing at discharge. See med rec for details. She was referred to outpatient pulmonology for PFTs. Time Spent with Patient Time attestation: Total time spent providing and/or coordinating discharge services: Exam Narrative: General: No acute distress, alert and oriented per baseline HEENT: Atraumatic, normocephalic, mucous membranes moist CV: Regular rate and rhythm, S1, S2 Lungs: Significantly diminished air entry throughout, tight end expiratory wheezes noted Abdomen: Soft, nontender, nondistended Extremities: Normal to inspection Skin: No rashes noted, no lesions or wounds seen Psych: Euthymic, normal affect Discharge Plan Discharge Attending physician on discharge: Elena Dominguez Consulting providers: Carolina Freeman Discharging Clinician: Elena Dominguez Patient Disposition: Home, Self-Care Activity: as tolerated Diet: as tolerated Discharge Instructions: Please call pulmonology office [phone] and make an appointment. Patient Instructions: Antibiotic Form Stand Alone Forms: General Discharge Information Follow-up/Referrals: Kofi Howard MD [Physician] - Discharge Medications: New (DME) nebulizers Misc See Rx Instructions .Route Qty: 1 0RF Rx Instructions: As directed prednisone 20 mg Tablet 40 mg PO DAILY@0800 4 Days Qty: 8 0RF budesonide-formoterol [Symbicort] 160-4.5 mcg/actuation HFA aerosol inhaler 2 puff inhalation Q12H 30 Days Qty: 10.2 0RF albuterol sulfate 2.5 mg/0.5 mL solution for nebulization 5 mg inhalation Q6H PRN (Reason: shortness of breath or wheezing) Qty: 30 0RF Continued albuterol sulfate 90 mcg/actuation HFA aerosol inhaler 2 puff INHALATION Q4-6H PRN (Reason: Shortness Of Breath) escitalopram oxalate 20 mg Tablet 20 mg PO DAILY PNV cmb#95-ferrous fumarate-FA [] 28 mg iron- 800 mcg Tablet 1 tablet PO DAILY Date of admission: 11/07/22 02:18 Primary Care Provider: Diamond,Ashlee Bowles Admitting Provider: Efrain Jeffrey V. Attending physician on admission: Efrain Jeffrey V. Condition: Stable
== END 2022-11-08 16:23 | disposition home or self-care (01) ==
LOC: ANHED 11-07 02:34 → ANHICU 11-07 03:32 → ANH3MEDSUR 11-08 11:21 → ANHICU 11-09 10:47
PROVIDERS: Emergency Medicine; Admitting Provider Student in an Organized Health Care Education/Training Program; Emergency Provider Physician Assistant; PCP Family Medicine; Visit Provider Student in an Organized Health Care Education/Training Program
DX: J45.901 Unspecified asthma with (acute) exacerbation (principal); F32.A Depression, unspecified; J32.9 Chronic sinusitis, unspecified; E07.9 Disorder of thyroid, unspecified; Z20.822 Contact with and (suspected) exposure to COVID-19; Z98.891 History of uterine scar from previous surgery; Z87.891 Personal history of nicotine dependence; Z79.51 Long term (current) use of inhaled steroids; Z79.899 Other long term (current) drug therapy
CPT/HCPCS: 36415; 71046; 71275; 80053; 83735; 84484; 85025; 87636; 93005; 94640; 96365; 96374; 99285; A9270; G0378; J1885; J3475; J7512; Q9967